=== PATIENT | male | born 1975 | race Hispanic/Latino ===

== ENCOUNTER 2017-08-24 17:54 | Emergency (ER) | payer OTHER ==
[2017-08-24 18:00] VITALS: BP 127/80; PULSE 72; RESP 16; TEMP 97.5; O2SAT 100
[2017-08-24] MEDS ORDERED: Lidocaine 1% (10 ml) Inj INFIL STA (18:07)
[2017-08-24] MEDS ORDERED: Lidocaine 1% Inj (20ml) ONE (18:08)
[2017-08-24] MEDS ORDERED: Tdap Vaccine 0.5 ml Vial (10-64 yrs) IM ONE ×2 (18:28→18:58)
--- NOTE | 2017-08-24 18:56 | ED PDOC ---
HPI: Skin/Bite Injury Time Seen by Provider: 08/24/17 18:07 Chief Complaint (Nursing): Abnormal Skin Integrity Chief Complaint (Provider): Laceration, right hand - Unknown tetanus History Per: Patient History/Exam Limitations: no limitations Onset/Duration Of Symptoms: Mins Current Symptoms Are (Timing): Still Present Quality Of Symptoms: Painful Severity: Mild Pain Scale Rating Of: 3 Additional Complaint(s): Mild bleeding. Past Medical History Reviewed: Historical Data, Nursing Documentation, Vital Signs Vital Signs: Last Vital Signs Temp 97.5 F L 08/24/17 17:58 Pulse 72 08/24/17 17:58 Resp 16 08/24/17 17:58 BP 127/80 08/24/17 17:58 Pulse Ox 100 08/24/17 17:58 - Medical History PMH: No Chronic Diseases - Surgical History Surgical History: No Surg Hx - Family History Family History: States: No Known Family Hx - Living Arrangements Living Arrangements: With Family - Immunization History Hx Tetanus Toxoid Vaccination: Yes - Allergies Allergies/Adverse Reactions: Allergies Allergy/AdvReac Type Severity Reaction Status Date / Time No Known Allergies Allergy Verified 08/24/17 17:58 Review of Systems ROS Statement: Except As Marked, All Systems Reviewed And Found Negative Constitutional: Negative for: Fever, Chills Skin: Positive for: Other Physical Exam - Reviewed Nursing Documentation Reviewed: Yes Vital Signs Reviewed: Yes - Physical Exam Appears: Positive for: Well, Non-toxic, No Acute Distress Head Exam: Positive for: ATRAUMATIC, NORMAL INSPECTION, NORMOCEPHALIC Skin: Positive for: Warm. Negative for: Normal Color ((+) 5 cm laceration, right posterior hand at the base of the thumb, linear ) Eye Exam: Positive for: Normal appearance. Negative for: EOMI, PERRL ENT: Positive for: Normal ENT Inspection Neck: Positive for: Normal Respiratory: Negative for: Accessory Muscle Use, Respiratory Distress Back: Positive for: Normal Inspection Extremity: Positive for: Normal ROM Neurologic/Psych: Positive for: Alert, Oriented - ECG O2 Sat by Pulse Oximetry: 100 Medical Decision Making Medical Decision Making: IM adacel given to patient. Disposition - Clinical Impression Clinical Impression: Hand laceration, Vaccine for tetanus toxoid - Disposition Disposition: Routine/Home Disposition Time: 18:59 Condition: GOOD Additional Instructions: Do not get wet for 24-48 hours. Keep clean and dry with antibiotic ointment twice a day. Suture removal in 8-10 days. Instructions: Laceration Repair Laceration - Laceration Repair Hand Wound Length (In cm): 5 Description Of Wound: Linear, Clean Wound Cleansed With: Betadine Anesthesia: Lidocaine 1% Wound Examination: Irrigated With Saline, No FB With Wound Exploration, No Tendon Injury With Wound Exploration Wound Closure: Suture (#5) Suture Technique And Material Used: Prolene (4.0) Wound Complexity: Simple
== END 2017-08-24 19:10 | disposition home or self-care (01) ==
LOC: H.ER 17:54
DX: S61.411A Laceration without foreign body of right hand, initial encounter (principal); Z23 Encounter for immunization

== ENCOUNTER 2017-09-03 14:59 | Emergency (ER) | payer OTHER ==
[2017-09-03 15:22] VITALS: BP 108/72; PULSE 60; RESP 16; TEMP 98.3; O2SAT 99
--- NOTE | 2017-09-03 15:42 | ED PDOC ---
HPI: Wound Care - HPI Time Seen by Provider: 09/03/17 15:39 Chief Complaint (Nursing): Suture/Staple Removal Chief Complaint (Provider): SUTURE REMOVAL History Per: Patient (42 Y/O MALE HERE FOR SUTURE REMOVAL AFTER WOUND REPAIR 10 DAYS AGO. PATIENT STATES INJURY OCCURRED WHEN HE WAS TAKING ON TRASH AND CUT SELF ACCIDENTALLY. DENIES ANY COMPLAINTS. ADMITS TO USE OF HAND IT IS DOMINANT HAND.) Past Medical History Reviewed: Historical Data, Nursing Documentation, Vital Signs Vital Signs: Last Vital Signs Temp 98.3 F 09/03/17 15:21 Pulse 60 09/03/17 15:21 Resp 16 09/03/17 15:21 BP 108/72 09/03/17 15:21 Pulse Ox 99 09/03/17 15:21 - Medical History PMH: Graves' Disease - Family History Family History: States: No Known Family Hx - Immunization History Hx Tetanus Toxoid Vaccination: Yes - Allergies Allergies/Adverse Reactions: Allergies Allergy/AdvReac Type Severity Reaction Status Date / Time No Known Allergies Allergy Verified 08/24/17 17:58 Review of Systems ROS Statement: Except As Marked, All Systems Reviewed And Found Negative Physical Exam - Reviewed Nursing Documentation Reviewed: Yes Vital Signs Reviewed: Yes - Physical Exam Appears: Positive for: Well, Non-toxic, No Acute Distress Head Exam: Positive for: ATRAUMATIC, NORMAL INSPECTION, NORMOCEPHALIC Skin: Positive for: Normal Color, Warm, DRY Eye Exam: Positive for: EOMI, Normal appearance, PERRL ENT: Positive for: Normal ENT Inspection Neck: Positive for: Normal, Painless ROM Cardiovascular/Chest: Positive for: Regular Rate, Rhythm Respiratory: Positive for: CNT, Normal Breath Sounds Gastrointestinal/Abdominal: Positive for: Normal Exam, Bowel Sounds, Soft Back: Positive for: Normal Inspection Extremity: Positive for: Normal ROM, Other (SUTURES INTACT DORSUM OF RIGHT HAND NO SURROUNDING ERYTHEMA/SIGNS OF INFECTIONN) Neurologic/Psych: Positive for: Alert, Oriented - ECG O2 Sat by Pulse Oximetry: 99 - Progress ED Course And Treament: VERBAL CONSENT PRIOR TO PROCEDURE SUTURES REMOVED WITHOUT DIFFICULTY Disposition - Clinical Impression Clinical Impression: Removal of suture - Patient ED Disposition Is Patient to be Admitted: No - Disposition Disposition: Routine/Home Disposition Time: 15:42 Condition: FAIR Instructions: Stitches Removal
== END 2017-09-03 15:50 | disposition home or self-care (01) ==
LOC: H.ER 14:59
DX: Z48.02 Encounter for removal of sutures (principal); E05.00 Thyrotoxicosis with diffuse goiter without thyrotoxic crisis or storm